=== PATIENT | male | born 1940 | race Caucasian/White ===

== ENCOUNTER 2018-08-22 10:33 | Emergency (ER) | payer MEDICARE ==
--- NOTE | 2018-08-22 10:57 | Emergency Department Record ---
History of Present Illness - General Chief complaint: Lower Extremity Pain Stated complaint: INJURED FOOT Time Seen by Provider: 08/22/18 10:49 Source: Patient Mode of Arrival: Ambulatory Limitations: No limitations - History of Present Illness Initial comments: pt turned foot the wrong way and injured it last night. it has continued to hurt. Complaint: Extremity pain, Extremity swelling Location: Left, Foot History of Same: No Radiation: Distal Severity scale (1-10): 3 Quality: Aching Consistency: Constant Improves with: Nothing Worsens with: Nothing Associated Symptoms: Denies other symptoms - Related Data Home Medications Medication Instructions Recorded Confirmed Last Taken Atorvastatin Calcium 40 mg PO QHS 08/22/18 08/22/18 Unknown Cholecalciferol (Vitamin D3) 2,000 unit PO DAILY 08/22/18 08/22/18 Unknown [Vitamin D3] Fenofibric Acid (Choline) 45 mg PO DAILY 08/22/18 08/22/18 Unknown [Fenofibric Acid] Glucosam/Riley-Msm1/C/Oseas/Bosw 1 tab PO DAILY 08/22/18 08/22/18 Unknown [Osteo Bi-Flex] Insulin Glargine,Hum.rec.anlog 70 unit SQ QPM 08/22/18 08/22/18 Unknown [Lantus] Insulin NPH Hum/Reg Insulin Hm 54 unit SQ QPM 08/22/18 08/22/18 Unknown [Novolin 70-30 100 Unit/ml Vial] Insulin NPH Hum/Reg Insulin Hm 55 unit SQ QAM 08/22/18 08/22/18 Unknown [Novolin 70-30 100 Unit/ml Vial] Lisinopril/Hydrochlorothiazide 1 each PO DAILY 08/22/18 08/22/18 Unknown [Lisinopril-Hctz 20-25 mg Tab] Metformin HCl 1,000 mg PO BID 08/22/18 08/22/18 Unknown Omeprazole 20 mg PO DAILY 08/22/18 08/22/18 Unknown Pioglitazone HCl 45 mg PO DAILY 08/22/18 08/22/18 Unknown Vortioxetine Hydrobromide 10 mg PO DAILY 08/22/18 08/22/18 Unknown [Brintellix] Previous Rx's Medication Instructions Recorded Hydrocodone/Acetaminophen [Heron 0.5 - 1 tab PO TID PRN #9 tab 08/22/18 5mg/325mg] Allergies Allergy/AdvReac Type Severity Reaction Status Date / Time No Known Drug Allergies Allergy Verified 08/22/18 10:42 Travel Screening - Travel/Exposure Within Last 30 Days Have you traveled within the last 30 days?: No Review of Systems Reviewed: No additional complaints except as noted below Constitutional: Reports: As per HPI. Denies: Chills, Fever, Malaise, Night sweats, Weakness, Weight change Eyes: Reports: As per HPI. Denies: Eye discharge, Eye pain, Photophobia, Vision change ENT: Reports: As per HPI. Denies: Congestion, Dental pain, Ear pain, Epistaxis , Hearing loss, Throat pain Respiratory: Reports: As per HPI. Denies: Cough, Dyspnea, Hemoptysis, Stridor, Wheezes Cardiovascular: Reports: As per HPI. Denies: Arrhythmia, Chest pain, Dyspnea on exertion, Edema, Murmurs, Orthopnea, Palpitations, Paroxysmal nocturnal dyspnea, Rheumatic Fever, Syncope Endocrine: Reports: As per HPI. Denies: Fatigue, Heat or cold intolerance, Polydipsia, Polyuria Gastrointestinal: Reports: As per HPI. Denies: Abdominal pain, Constipation, Diarrhea, Hematemesis, Hematochezia, Melena, Nausea, Vomiting Genitourinary: Reports: As per HPI. Denies: Dysuria, Frequency, Hematuria, Incontinence, Retention, Testicular pain, Testicular mass, Urgency Musculoskeletal: Reports: As per HPI. Denies: Arthralgia, Back pain, Gout, Joint swelling, Myalgia, Neck pain Skin: Reports: As per HPI. Denies: Bruising, Change in color, Change in hair/ nails, Lesions, Pruritus, Rash Neurological: Reports: As per HPI. Denies: Abnormal gait, Confusion, Headache, Numbness, Paresthesias, Seizure, Tingling, Tremors, Vertigo, Weakness Psychiatric: Reports: As per HPI. Denies: Anxiety, Auditory hallucinations, Depression, Homicidal thoughts, Suicidal thoughts, Visual hallucinations Hematological/Lymphatic: Reports: As per HPI. Denies: Anemia, Blood Clots, Easy bleeding, Easy bruising, Swollen glands Past Medical History - SOCIAL HISTORY Smoking Status: Never smoker Alcohol Use: None Drug Use: None - RESPIRATORY Hx Respiratory Disorders: No - CARDIOVASCULAR Hx Cardio Disorders: Yes Hx Hypertension: Yes Comment:: high cholesterol - NEURO Hx Neuro Disorders: No - GI Hx GI Disorders: No - Hx Genitourinary Disorders: No - ENDOCRINE Hx Endocrine Disorders: Yes Hx Diabetes: Yes - PSYCH Hx Psych Problems: Yes Hx Depression: Yes - HEMATOLOGY/ONCOLOGY Hx Hematology/Oncology Disorders: No Family Medical History Any Significant Family History?: Yes Hx Heart Disease: Father Physical Exam - General General Appearance: Alert, Oriented x3, Cooperative, No acute distress - Head Head exam: Normal inspection - Eye Eye exam: Normal appearance, PERRL, EOMI Pupils: Normal accommodation - ENT ENT exam: Normal exam, Mucous membranes moist, Normal external ear exam, Normal orophraynx Ear exam: Normal external inspection. negative: External canal tenderness Nasal Exam: Normal inspection. negative: Discharge, Sinus tenderness Mouth exam: Normal external inspection, Tongue normal Teeth exam: Normal inspection. negative: Dental caries Throat exam: Normal inspection. negative: Tonsillar erythema, Tonsillar exudate - Neck Neck exam: Normal inspection, Full ROM. negative: Tenderness - Respiratory Respiratory exam: Normal lung sounds bilaterally. negative: Respiratory distress - Cardiovascular Cardiovascular Exam: Regular rate, Normal rhythm, Normal heart sounds - GI/Abdominal GI/Abdominal exam: Soft, Normal bowel sounds. negative: Tenderness - Rectal Rectal exam: Deferred - exam: Deferred - Extremities Extremities exam: Full ROM, Normal capillary refill, Tenderness Image of Feet: 1 - ecchymosis and swelling and tenderness - Back Back exam: Reports: Normal inspection, Full ROM. Denies: Muscle spasm, Rash noted, Tenderness - Neurological Neurological exam: Alert, CN II-XII intact, Normal gait, Oriented X3 - Psychiatric Psychiatric exam: Normal affect, Normal mood - Skin Skin exam: Dry, Intact, Normal color, Warm Course Vital Signs 08/22/18 10:39 Temperature 97.9 F Pulse Rate 88 Respiratory 24 Rate Blood Pressure 145/83 Pulse Ox 99 - Reevaluation(s) Reevaluation #1: 08/22/18 12:19 d/w dr hinkle who accepted pt for dr gill. Disposition Disposition: Discharge Clinical Impression: Multiple closed fractures of metatarsal bone of left foot Qualifiers: Encounter type: initial encounter Qualified Code(s): S92.302A - Fracture of unspecified metatarsal bone(s), left foot, initial encounter for closed fracture Closed fracture of 5th metacarpal Qualifiers: Encounter type: initial encounter Metacarpal location: shaft Fracture alignment : displaced Laterality: left Qualified Code(s): S62.327A - Displaced fracture of shaft of fifth metacarpal bone, left hand, initial encounter for closed fracture Fracture of 4th metatarsal Qualifiers: Encounter type: initial encounter Fracture type: closed Fracture alignment: displaced Laterality: left Qualified Code(s): S92.342A - Displaced fracture of fourth metatarsal bone, left foot, initial encounter for closed fracture Disposition: Home, Self-Care Condition: (1) Good Instructions: Foot Fracture in Adults (ED) Additional Instructions: follow up with dr gill as discussed with dr hinkle. call office on friday. ice and elevate foot. no weight bearing. return soon if worse. Prescriptions: Hydrocodone/Acetaminophen [Heron 5mg/325mg] 0.5 - 1 tab PO TID PRN #9 tab PRN Reason: Pain - General Referrals: IRVING GILL [DOCTOR OF OSTEOPATH] - Forms: Patient Portal Access Quality - Quality Measures Quality Measures: N/A - Blood Pressure Screening Does Patient Have Any of the Following: No Blood Pressure Classification: Pre-Hypertensive BP Reading Systolic Measurement: 145 Diastolic Measurement: 83 Screening for High Blood Pressure: < Pre-Hypertensive BP, F/U Documented > [ [id number]] Pre-Hypertensive Follow-up Interventions: Follow-up with rescreen every year.
[2018-08-22] MEDS ORDERED: HYDROCODONE/APAP 5/325MG TABLET PO ONE (11:46)
--- NOTE | 2018-08-24 13:37 | RADIOLOGY REPORT ---
EXAM: LEFT FOOT, THREE VIEWS HISTORY: FALL. TECHNIQUE: Three views of the left foot were obtained. Comparison: None. Encounter: Initial. FINDINGS: FIFTH METATARSAL: Comminuted fracture of the mid shaft with approximately 1 cm overriding of fracture fragments. The distal fracture is displaced dorsally and medially approximately three-quarter shaft width. No intraarticular extension of fracture fragments. FOURTH METATARSAL: Oblique, mildly comminuted fracture with mild displacement. The distal fracture is mildly displaced medially. No intraarticular extension. No additional fractures are identified. Osteopenia is noted. There is soft tissue swelling in the lateral foot. IMPRESSION: SEE ABOVE. JOB NUMBER: [id number] MTDD
== END 2018-08-22 12:52 | disposition home or self-care (01) ==
LOC: ER 10:33
DX: S92.342A Displaced fracture of fourth metatarsal bone, left foot, initial encounter for closed fracture (principal); S92.352A Displaced fracture of fifth metatarsal bone, left foot, initial encounter for closed fracture; X50.0XXA Overexertion from strenuous movement or load, initial encounter; E11.9 Type 2 diabetes mellitus without complications; I10 Essential (primary) hypertension; Z79.4 Long term (current) use of insulin; Z79.84 Long term (current) use of oral hypoglycemic drugs
CPT/HCPCS: 99283